=== PATIENT | male | born 1965 | race Caucasian/White ===

== ENCOUNTER 2017-10-04 17:24 | Emergency (ER) | payer SELFPAY ==
[2017-10-04 18:11] LABS: BASOPHIL (%) 0.7 % (0-1); BASOPHIL COUNT 0.1 K/uL (0-0.1); EOSINOPHIL (%) 1.4 % (0-5); EOSINOPHIL COUNT 0.1 K/uL (0-0.3); HEMATOCRIT 48.4 % (38.0-50.0); HEMOGLOBIN 16.9 G/DL (12.5-16.6); IMMATURE GRANULOCYTE (%) 0.5 % (0.0-0.7); LYMPHOCYTE (%) 31.1 % (15-42); LYMPHOCYTE COUNT 3.2 K/uL (1.0-2.8); MCH 32.3 PG (29.0-34.0); MCHC 34.9 G/DL (30.0-36.0); MCV 92.5 FL (86-99); MONOCYTE (%) 5.8 % (3-12); MONOCYTE COUNT 0.6 K/uL (0-0.8); NEUTROPHIL (%) 60.5 % (45-76); NEUTROPHIL COUNT 6.3 K/uL (1.8-6.4); PLATELET COUNT 240 K/uL (156-360); RBC DIS.WIDTH-CV 11.9 % (11.8-14.6); RBC DIS.WIDTH-SD 40.5 % (39-53); RED BLOOD COUNT 5.23 M/uL (4.00-5.50); WHITE BLOOD COUNT 10.3 K/uL (4.1-10.2)
[2017-10-04 18:20] LABS: APPEARANCE CLEAR ((CLEAR)); BILIRUBIN NEGATIVE; BLOOD NEGATIVE; COLOR STRAW ((YELLOW)); GLUCOSE (STRIP) NEGATIVE; KETONES NEGATIVE; LEUKOCYTES NEGATIVE; NITRITE NEGATIVE; PROTEIN (STRIP) NEGATIVE; SPECIFIC GRAVITY 1.005 (1.000-1.030); UCUL ADDED? NO; UROBILINOGEN 0.2 MG/DL (0.2-1.0)
[2017-10-04 18:25] LABS: AMYLASE 57 IU/L (1-118); CHLORIDE 105 mEq/L (99-109); POTASSIUM 3.5 mEq/L (3.7-5.4); SODIUM 140 mEq/L (136-147)
[2017-10-04 18:27] LABS: GLUCOSE 97 mg/dL (70-99)
[2017-10-04 18:29] LABS: AMPHETAMINE NEGATIVE (500 ng/mL); BARBITURATES NEGATIVE (200 ng/mL); BENZODIAZEPINES NEGATIVE (150 ng/mL); BUPRENORPHINE NEGATIVE (10 ng/mL); COCAINE NEGATIVE (150 ng/mL); METHADONE NEGATIVE (200 ng/mL); METHAMPHETAMINE NEGATIVE (500 ng/mL); OPIATES (MORPHINE) NEGATIVE (100 ng/mL); OXYCODONE NEGATIVE (100 ng/mL); PHENCYCLIDINE NEGATIVE (25 ng/mL); PROPOXYPHENE NEGATIVE (300 ng/mL); THC CANNABINOIDS NEGATIVE (50 ng/mL); TRICYCLIC ANTIDEPRESSANTS NEGATIVE (300 ng/mL)
[2017-10-04 18:30] LABS: CREATININE 0.8 mg/dL (0.6-1.3); SERUM ETHYL ALCOHOL 391 mg/dL
[2017-10-04 18:31] LABS: UREA NITROGEN (BUN) 14 mg/dL (9-23)
[2017-10-04 18:33] LABS: LIPASE 47 U/L (1.0-51.0)
[2017-10-04 18:41] LABS: GFR ESTIMATE (CALCULATED) > 59 mL/min/ (58.99-99999)
== END 2017-10-04 22:50 | disposition home or self-care (01) ==
LOC: TRA 17:24
PROVIDERS: Emergency Medicine
DX: S00.01XA Abrasion of scalp, initial encounter (principal); F10.129 Alcohol abuse with intoxication, unspecified; Y90.8 Blood alcohol level of 240 mg/100 ml or more; W18.30XA Fall on same level, unspecified, initial encounter; Y92.410 Unspecified street and highway as the place of occurrence of the external cause
CPT/HCPCS: 70450; 72125; 80048; 81003; 82150; 83690; 85025; 86850; 86900; 86901; 99281; 99285; G0480

== ENCOUNTER 2018-04-15 16:43 | Emergency (ER) | payer BC, OTHER ==
[~2018-04-15] VITALS: Ht 177.8 cm; Wt 95.0 kg
[2018-04-15 20:32] VITALS: BP 107/84
== END 2018-04-15 20:34 | disposition home or self-care (01) ==
LOC: EME 16:43
DX: S01.111A Laceration without foreign body of right eyelid and periocular area, initial encounter (principal); F10.129 Alcohol abuse with intoxication, unspecified; W01.198A Fall on same level from slipping, tripping and stumbling with subsequent striking against other object, initial encounter; J32.0 Chronic maxillary sinusitis; H70.91 Unspecified mastoiditis, right ear; F17.200 Nicotine dependence, unspecified, uncomplicated
CPT/HCPCS: 70450; 70486; 99281; 99284

== ENCOUNTER 2018-04-16 22:39 | Emergency (ER) | payer BC, OTHER ==
[~2018-04-16] VITALS: Ht 177.8 cm; Wt 95.0 kg
[2018-04-16 23:50] LABS: MCH 33.5 PG (29.0-34.0); MCHC 36.6 G/DL (30.0-36.0); MCV 91.5 FL (86-99); PLATELET COUNT 222 K/uL (156-360); RBC DIS.WIDTH-CV 12.2 % (11.8-14.6); RBC DIS.WIDTH-SD 41.1 % (39-53); RED BLOOD COUNT 4.48 M/uL (4.00-5.50); WHITE BLOOD COUNT 6.9 K/uL (4.1-10.2)
[2018-04-17 00:05] LABS: ALBUMIN 4.7 g/dL (3.2-4.8); CHLORIDE 99 mEq/L (99-109); POTASSIUM 4.1 mEq/L (3.7-5.4); SODIUM 141 mEq/L (136-147)
[2018-04-17 00:07] LABS: GLUCOSE 123 mg/dL (70-99)
[2018-04-17 00:09] LABS: TOTAL BILIRUBIN 0.9 mg/dL (0.0-1.0)
[2018-04-17 00:10] LABS: SERUM ETHYL ALCOHOL > 495 mg/dL
[2018-04-17 00:11] LABS: ALKALINE PHOSPHATASE 83 IU/L (3-129); CREATININE 0.8 mg/dL (0.6-1.3); GFR ESTIMATE (CALCULATED) > 59 mL/min/ (58.99-99999)
[2018-04-17 00:12] LABS: AST (GOT) 174 IU/L (2-34); UREA NITROGEN (BUN) 11 mg/dL (9-23)
[2018-04-17 00:14] LABS: ALT (GPT) 117 IU/L (3-49); LIPASE 99 U/L (1.0-51.0)
[2018-04-17] MEDS ORDERED: LIBRIUM25 MG PO (07:56)
[2018-04-17 08:32] VITALS: BP 121/71
== END 2018-04-17 08:34 | disposition home or self-care (01) ==
LOC: EME 22:39
PROVIDERS: Emergency Medicine
DX: F10.129 Alcohol abuse with intoxication, unspecified (principal); Y90.8 Blood alcohol level of 240 mg/100 ml or more; F17.200 Nicotine dependence, unspecified, uncomplicated; Z87.19 Personal history of other diseases of the digestive system
CPT/HCPCS: 80053; 82024 90; 83690; 85027; 99281; 99284; G0480; J3411; J7030